=== PATIENT | male | born 1990 | race Caucasian/White ===

== ENCOUNTER 2024-10-29 13:51 | Emergency (ER) | payer OTHER ==
[~2024-10-29] VITALS: Ht 170.2 cm; Wt 76.2 kg
[2024-10-29] MEDS ORDERED: GUAI5SYR4 PO (14:57)
[2024-10-29 15:06] VITALS: BP 127/78; O2SAT 99
== END 2024-10-29 15:06 | disposition home or self-care (01) ==
LOC: ER 13:52
DX: J06.9 Acute upper respiratory infection, unspecified (principal); B97.89 Other viral agents as the cause of diseases classified elsewhere; R05.9 Cough, unspecified
CPT/HCPCS: A4606; A4663